=== PATIENT | female | born 1995 | race Caucasian/White ===

== ENCOUNTER 2018-10-28 15:05 | Emergency (ER) | payer OTHER ==
[~2018-10-28] VITALS: Ht 160 cm; Wt 44.0 kg
== END 2018-10-28 23:50 | disposition home or self-care (01) ==
LOC: ER 15:05
DX: R14.3 Flatulence (principal); G43.809 Other migraine, not intractable, without status migrainosus; R10.84 Generalized abdominal pain; R11.0 Nausea